=== PATIENT | female | born 1950 | race Two or more races ===

== ENCOUNTER 2024-07-17 13:38 | Emergency (ER) | payer MEDICARE | END 2024-07-17 15:06 | disposition home or self-care (01) | LOC: ER 13:46 | DX: Z00.00 Encounter for general adult medical examination without abnormal findings (principal); Z53.21 Procedure and treatment not carried out due to patient leaving prior to being seen by health care provider ==

== ENCOUNTER 2025-02-16 16:46 | Inpatient (IN) | payer MEDICARE, MEDICAID ==
[~2025-02-16] VITALS: Ht 165.1 cm; Wt 103.0 kg
[~2025-02-16 16:46] MED LIST: PERM60CR6 TP
[2025-02-16] MEDS: IV LR 1000 ML 1,000 ML IV ONE (17:10)
[2025-02-16 18:05] LABS: PLATELET COUNT (AUTO) 170 K/uL (150-450); RED BLOOD CELL COUNT(AUTO) 4.85 MIL/uL (4.0-5.2); RED CELL DISTRIBUTION WIDTH 20.0 % (11.5-15.0); WHITE BLOOD COUNT (AUTO) 7.1 K/uL (4.3-11.0)
[2025-02-16 18:08] LABS: CALCIUM, SERUM 9.7 mg/dL (8.5-10.1); CREATININE 0.9 mg/dL (0.6-1.3); SODIUM SERUM 139 mmol/L (136-145); UREA NITROGEN, BLOOD 17 mg/dL (7-18)
[2025-02-16 18:16] LABS: ASPARTATE AMINOTRANSFERASE 31 U/L (15-37); TOTAL PROTEIN, SERUM 6.7 g/dL (6.4-8.2)
[2025-02-16 18:17] LABS: ALCOHOL, BLOOD < 3 mg/dL (0-10); INR 1.03 (0.91-1.10)
[2025-02-16 18:23] LABS: LACTIC ACID 2.1 mmol/L (0.4-2.0)
[2025-02-16] MEDS ORDERED: IVER3TAB2 PO (18:51)
[2025-02-16] MEDS ORDERED: NA P133E RC (18:51)
[2025-02-16] MEDS ORDERED: DICL100G34 TP (18:51)
[2025-02-16] MEDS ORDERED: MELA3TAB41 PO (18:51)
[2025-02-16] MEDS ORDERED: FURO40TA5 PO (18:51)
[2025-02-16] MEDS ORDERED: ACET325T53 PO (18:51)
[2025-02-16] MEDS ORDERED: LOSA25TA27 PO (18:51)
[2025-02-16] MEDS ORDERED: CHOL100062 PO (18:51)
[2025-02-16] MEDS ORDERED: GLUC1KIT IM (18:51)
[2025-02-16] MEDS ORDERED: DEXT33GE7 PO (18:51)
[2025-02-16] MEDS ORDERED: MAGN400O6 PO (18:51)
[2025-02-16] MEDS ORDERED: ACET-73 PO (18:51)
[2025-02-16] MEDS ORDERED: POTA-10 PO (18:51)
[2025-02-16] MEDS ORDERED: SIMV-49 PO (18:51)
[2025-02-16] MEDS ORDERED: AMMO225L14 TP (18:51)
[2025-02-16] MEDS ORDERED: DONE5TAB34 PO (18:51)
[2025-02-16] MEDS: POTASSIUM CHLORIDE 20 MEQ TAB.PRT.SR PO ONE (19:15)
[2025-02-16] MEDS ORDERED: ACETAMINOPHEN 325 MG TABLET PO PRN (23:00)
[2025-02-16] MEDS ORDERED: DICLOFENAC TOPICAL 100 GM TUBE TP PRN (23:00)
[2025-02-16] MEDS ORDERED: ONDANSETRON HCL/PF 4 MG/2 ML VIAL IVP PRN (23:00)
[2025-02-16] MEDS ORDERED: LORAZEPAM INJ 2 MG/ML VIAL IV PRN (23:00)
[2025-02-16 23:28] LABS: APPEARANCE,URINE CLEAR (CLEAR); BLOOD, URINE 2+ Ery/uL (NEGATIVE); LEUKOCYTE ESTERASE ,URINE TRACE (NEGATIVE); NITRITE, URINE NEGATIVE (NEGATIVE); UGLUCOSE NEGATIVE (NEGATIVE)
[2025-02-16 23:38] LABS: AMPHETAMINE, URINE NEGATIVE (NEGATIVE); BARBITURATE, URINE NEGATIVE (NEGATIVE); BENZODIAZEPINE, URINE NEGATIVE (NEGATIVE); CANNABINOID, URINE NEGATIVE (NEGATIVE); COCCAINE, URINE NEGATIVE (NEGATIVE); OPIATE, URINE NEGATIVE (NEGATIVE)
[2025-02-16 23:40] LABS: ADD URINE CULTURE YES; SQUAMOUS EPITHELIAL CELL,UR 0-2 /HPF (None Seen)
[2025-02-17] VITALS (11 sets, daily range): BP systolic 111–135; BP diastolic 52–81; TEMP 97.3–98.6; O2SAT 92–97
[2025-02-17] MEDS: SIMVASTATIN 40 MG TABLET PO SCH (02:00)
[2025-02-17] MEDS: ENOXAPARIN SODIUM 40 MG/0.4 ML DISP.SYRIN SQ SCH (02:13)
[2025-02-17 07:37] LABS: PLATELET COUNT (AUTO) 144 K/uL (150-450); RED BLOOD CELL COUNT(AUTO) 4.51 MIL/uL (4.0-5.2); RED CELL DISTRIBUTION WIDTH 19.1 % (11.5-15.0); WHITE BLOOD COUNT (AUTO) 3.9 K/uL (4.3-11.0)
[2025-02-17 08:21] LABS: CALCIUM, SERUM 9.4 mg/dL (8.5-10.1); CREATININE 0.6 mg/dL (0.6-1.3); PHOSPHORUS 3.0 mg/dL (2.5-4.9); SODIUM SERUM 143.0 mmol/L (136-145); UREA NITROGEN, BLOOD 12.0 mg/dL (7-18)
[2025-02-17] MEDS: DONEPEZIL 5 MG TABLET PO SCH (08:22)
[2025-02-17] MEDS: CHOLECALCIFEROL 1,000 UNIT TABLET (VIT D3) PO SCH (08:22)
[2025-02-17] MEDS: LOSARTAN POTASSIUM 25 MG TABLET PO SCH (08:22)
[2025-02-17] MEDS: AMMONIUM LACTATE 227 GM BOTTLE TP SCH (08:23)
[2025-02-17] MEDS: CEFTRIAXONE 1 G in IV D5W 50 ML IV SCH (11:24)
[2025-02-17] MEDS: SIMVASTATIN 20 MG TABLET PO SCH (21:32)
[2025-02-18] VITALS: BP 143/82; TEMP 98.1; O2SAT 98
[2025-02-18 00:04] VITALS: BP 143/82; TEMP 98.1; O2SAT 98
[2025-02-18 04:00] VITALS: BP 118/68; TEMP 98; O2SAT 95
[2025-02-18 06:22] LABS: PLATELET COUNT (AUTO) 154 K/uL (150-450); RED BLOOD CELL COUNT(AUTO) 4.60 MIL/uL (4.0-5.2); RED CELL DISTRIBUTION WIDTH 19.9 % (11.5-15.0); WHITE BLOOD COUNT (AUTO) 3.7 K/uL (4.3-11.0)
[2025-02-18 06:42] LABS: CALCIUM, SERUM 9.6 mg/dL (8.5-10.1); CREATININE 0.6 mg/dL (0.6-1.3); PHOSPHORUS 3.5 mg/dL (2.5-4.9); SODIUM SERUM 144.0 mmol/L (136-145); UREA NITROGEN, BLOOD 6.0 mg/dL (7-18)
[2025-02-18 08:50] VITALS: BP 142/57; TEMP 98.1; O2SAT 93
[2025-02-18] MEDS ORDERED: CEPH500C2 PO (15:58)
[2025-02-18 16:52] VITALS: BP 118/54; TEMP 97.6; O2SAT 94
[2025-02-18 20:00] VITALS: BP 113/60; TEMP 97.9; O2SAT 95
[2025-02-19 08:00] VITALS: BP 120/68; TEMP 97.9; O2SAT 94
[2025-02-19 08:39] VITALS: BP 120/68
== END 2025-02-19 12:30 | DRG 640 ==
LOC: ER 16:49 → MED 23:48 → TELE 02-17 00:23 → MED 02-18 20:00
PROVIDERS: ADMIT Nurse Practitioner Acute Care; ATTEND Nurse Practitioner Acute Care
DX: E87.6 Hypokalemia (principal); G93.41 Metabolic encephalopathy; D68.59 Other primary thrombophilia; E87.20 Acidosis, unspecified; E66.9 Obesity, unspecified; E11.9 Type 2 diabetes mellitus without complications; B96.89 Other specified bacterial agents as the cause of diseases classified elsewhere; F03.90 Unspecified dementia, unspecified severity, without behavioral disturbance, psychotic disturbance, mood disturbance, and anxiety; N39.0 Urinary tract infection, site not specified; I10 Essential (primary) hypertension; Z79.899 Other long term (current) drug therapy; Z68.37 Body mass index [BMI] 37.0-37.9, adult
CPT/HCPCS: 36415; 70450-TC; 71045-TC; 80048-TC; 80076-TC; 81001; 83605-TC; 83735-TC; 84100-TC; 84484-TC; 85025-TC; 85730-TC; 87040-TC; 87081-TC; 87086-TC; 95819-TC; 97110-TC; 97116-TC; 97530-TC; A4223; G0378; G0480; J0696; J1650; J7040; J7060; J7120